=== PATIENT | male | born 1995 | race Caucasian/White ===

== ENCOUNTER 2017-01-21 20:02 | Emergency (ER) | payer OTHER ==
[2017-01-21 20:23] VITALS: BP 120/58; PULSE 83; TEMP 98.2; BMI 18.1
[2017-01-21] MEDS ORDERED: KETOROLAC TROMETHAMINE 30 MG/1 ML VIAL IM ONE (21:29)
[2017-01-21] MEDS ORDERED: KETOROLAC TROMETHAMINE 30 MG/1 ML VIAL ONE (21:33)
--- NOTE | 2017-01-21 21:51 | PDOC ---
History of Present Illness - General Chief Complaint: Chest Pain Stated Complaint: PAIN, ACUTE Time Seen by Provider: 01/21/17 21:28 History Source: Patient - History of Present Illness Initial Comments: 01/21/17 21:48 This is a 21-year-old male without significant past medical history who presents to the ER today with complaints of left rib cage pain status post catching his partner at the initiation of the seizure. He states his partner started having a seizure when he fell towards the patient. Patient was able to stop him from hitting the floor but felt a pop in his ribs on the left side. He denies chest pain, shortness of breath, dizziness, nausea, vomiting. Patient reports hearing a "pop" at the time when he caught his partner. Timing/Duration: 1-3 hours Severity: mild Past History - Past Medical History Allergies/Adverse Reactions: Allergies Allergy/AdvReac Type Severity Reaction Status Date / Time No Known Allergies Allergy Verified 01/21/17 20:17 Home Medications: Ambulatory Orders NK [No Known Home Medication] 01/21/17 - Psycho/Social/Smoking Cessation Hx Anxiety: No Suicidal Ideation: No Smoking History: Never smoked Have you smoked in the past 12 months: No Information on smoking cessation initiated: No Hx Alcohol Use: No Drug/Substance Use Hx: No Substance Use Type: None Review of Systems - Review of Systems Able to Perform ROS?: Yes Is the patient limited Icelandic proficient: No Constitutional: No: Symptoms Reported HEENTM: No: Symptoms Reported Respiratory: No: Symptoms reported Cardiac (ROS): No: Symptoms Reported ABD/GI: No: Symptoms Reported : No: Symptoms Reported Musculoskeletal: Yes: See HPI Integumentary: No: Symptoms Reported Neurological: No: Symptoms reported Endocrine: No: Symptoms Reported *Physical Exam - Vital Signs Last Vital Signs Temp Pulse Resp BP Pulse Ox 98.2 F 83 18 120/58 100 01/21/17 20:13 01/21/17 20:13 01/21/17 20:13 01/21/17 20:13 01/21/17 20:13 - Physical Exam General Appearance: Yes: Appropriately Dressed. No: Apparent Distress HEENT: positive: EOMI, DINAH Neck: positive: Trachea midline, Supple Respiratory/Chest: positive: Chest Tender (4th intercostal space), Lungs Clear, Normal Breath Sounds. negative: Respiratory Distress Cardiovascular: positive: Regular Rhythm, Regular Rate, S1, S2 Gastrointestinal/Abdominal: positive: Normal Bowel Sounds, Soft. negative: Tender Musculoskeletal: positive: Normal Inspection. negative: CVA Tenderness Extremity: positive: Normal Capillary Refill, Normal Inspection Integumentary: positive: Normal Color, Dry, Warm Neurologic: positive: trademark attorney II-XII NML intact, Fully Oriented, Alert, Normal Mood/ Affect, Normal Response, Motor Strength / ED Treatment Course - RADIOLOGY Radiology Studies Ordered: Category Date Time Status RIBS-LEFT SIDE [RAD] Stat Radiology 01/21/17 21:28 Ordered - Medications Given in the ED: ED Medications Discontinued Medications Generic Name Dose Route Start Last Admin Trade Name Freq PRN Reason Stop Dose Admin Ketorolac Tromethamine 30 mg 01/21/17 21:29 01/21/17 21:44 Toradol Injection - IM 01/21/17 21:30 30 mg ONCE ONE Administration Medical Decision Making - Medical Decision Making 01/21/17 21:48 A: This is a 21-year-old male without significant past medical history who presents to the ER today with complaints of left rib cage pain status post catching his partner at the initiation of the seizure. He states his partner started having a seizure when he fell towards the patient. Patient was able to stop him from hitting the floor but felt a pop in his ribs on the left side. He denies chest pain, shortness of breath, dizziness, nausea, vomiting. Patient reports hearing a "pop" at the time when he caught his partner. No deformity, crepitus, subcutaneous emphysema noted over left side of rib cage. Tender to palpation at the fourth intercostal on the anterior lateral portion of the rib cage. Lungs clear to auscultation bilaterally. Patient unable to take deep breaths secondary to pain. No flail chest noted. P: Most likely musculoskeletal given crepitus, deformity, subcutaneous emphysema is noted. I'll give 30 mg of Toradol IM now I'll do a chest x-ray to look for bony deformity. reassess 01/21/17 22:38 Patient free of pain after receiving Toradol Wet read of rib x-rays by me: Osseous structures intact no fracture or dislocation is seen. Will discharge home *DC/Admit/Observation/Transfer Diagnosis at time of Disposition: Contusion of rib on left side Qualifiers: Encounter type: initial encounter Qualified Code(s): S20.212A - Contusion of left front wall of thorax, initial encounter - Discharge Dispostion Disposition: HOME Condition at time of disposition: Stable Admit: No - Patient Instructions Printed Discharge Instructions: DI for Rib Contusion Additional Instructions: Take Motrin as directed by manufacturers instructions as needed for pain. Use ice packs on your ribs for 20 minutes at a time as needed for pain. Return to the emergency department for any shortness of breath, chest pain, nausea, dizziness, vomiting or any other concerns. Thank you very much for choosing us to provide your emergent medical care.
== END 2017-01-21 23:06 | disposition home or self-care (01) ==
LOC: JERFT 20:02 → JER 20:02 → JERFT 23:06
PROC: 3E0233Z Introduction of Anti-inflammatory into Muscle, Percutaneous Approach (ICD-10-PCS; principal; 2017-01-21)
DX: S20.212A Contusion of left front wall of thorax, initial encounter (principal); X50.0XXA Overexertion from strenuous movement or load, initial encounter; X50.9XXA Other and unspecified overexertion or strenuous movements or postures, initial encounter; Y93.F2 Activity, caregiving, lifting; Y92.89 Other specified places as the place of occurrence of the external cause; Y99.8 Other external cause status
CPT/HCPCS: 71101-TC; 99281-25